=== PATIENT | male | born 1960 | race Caucasian/White ===

== ENCOUNTER 2020-09-24 11:37 | Emergency (ER) | payer BC ==
[~2020-09-24] VITALS: Ht 180.3 cm; Wt 85.2 kg
[2020-09-24] MEDS ORDERED: ASPIRIN 81 MG TABLET CHEW PO ONE (12:00)
[2020-09-24 12:22] LABS: ALBUMIN 3.9 g/dL (3.4-5.0); CALCIUM 9.1 mg/dL (8.5-10.1); CREATININE 0.95 mg/dL (0.7-1.3)
[2020-09-24 12:24] LABS: BASOPHILS % (AUTO) 0 % (0-1); EOSINOPHILS % (AUTO) 2 % (1-7); LYMPHOCYTES % (AUTO) 29 % (22-44); MEAN CORPUSCULAR HEMOGLOBIN 32.1 pg (27.5-34.5); MEAN PLATELET VOLUME 6.9 fL (7.4-10.4); MONOCYTES % (AUTO) 8 % (2-9); NEUTROPHILS % (AUTO) 61 % (42-75); PLATELET COUNT 200 x10^3/uL (130-400); RED BLOOD COUNT 4.93 x10^6/uL (4.38-5.82); RED CELL DISTRIBUTION WIDTH 13.4 % (9.4-14.8)
[2020-09-24 12:25] LABS: MD NO
[2020-09-24 12:26] LABS: TROPONIN I < 0.015 ng/mL (0.000-0.045)
[2020-09-24 12:34] LABS: ANION GAP 5 mmol/L (5-15); CHLORIDE 107 mmol/L (98-107)
--- NOTE | 2020-09-24 15:38 | NUR ---
processing manager: pt from lobby to room 31
[2020-09-24] MEDS ORDERED: ASPIRIN 81 MG TABLET CHEW ONE (15:52)
[2020-09-24] MEDS ORDERED: MAALOX/HYOSCYAMINE/LIDOCAINE 45 ML BTL ONE (16:34)
[2020-09-24] MEDS ORDERED: MAALOX/HYOSCYAMINE/LIDOCAINE 45 ML BTL PO ONE (17:00)
--- NOTE | 2020-09-24 17:11 | NUR ---
PT STATING HE FEELS IMPROVEMENT AFTER GI COCKTAIL.
--- NOTE | 2020-09-24 17:32 | NUR ---
PT REC'VD DISCHARGE INSTRUCTIONS AND EDUCATION. PT HAD NO FURTHER QUESTIONS.
[2020-09-24 17:33] VITALS: BP 118/85
--- NOTE | 2020-09-24 17:35 | NUR ---
PT AMBULATED TO NE AREA, STEADY GAIT.
== END 2020-09-24 18:14 | disposition home or self-care (01) ==
LOC: ED 14:23
DX: R07.2 Precordial pain (principal); K20.90 Esophagitis, unspecified without bleeding; E78.5 Hyperlipidemia, unspecified; Z88.0 Allergy status to penicillin
CPT/HCPCS: 36415; 71045; 80048; 82040; 83880; 84484; 85025; 93005; 99285